=== PATIENT | female | born 1990 | race Caucasian/White ===

== ENCOUNTER 2016-04-03 19:24 | Inpatient (IN) | payer OTHER ==
[2016-04-03] VITALS (18 sets, daily range): BP systolic 102–164; BP diastolic 54–81
[~2016-04-03] VITALS: Ht 152.4 cm; Wt 61.0 kg
[~2016-04-03 19:24] MED LIST: ACET50TA PO; IBUP80TA PO; PRE-TAB3 PO
[2016-04-03] MEDS ORDERED: LACTATED RINGER'S 1000 ML IV STA (20:54)
[2016-04-03] MEDS ORDERED: LR 1,000 ML IV SCH (20:54)
[2016-04-03 21:12] LABS: MEAN CORPUSCULAR HEMOGLOBIN 32.4 pg (27.0-33.0); MEAN CORPUSCULAR HGB CONC 36.3 g/dl (32.0-36.5); MEAN CORPUSCULAR VOLUME 89.3 fl (80.0-96.0); RED CELL DISTRIBUTION WIDTH 12.3 % (11.5-14.5); WHITE BLOOD COUNT 15.4 K/mm3 (4.0-10.0)
[2016-04-03] MEDS ORDERED: FENTANYL 2MCG/ML ROPIVACAINE 0.2% NACL 250 ML CADD As Ordered ONE (21:27)
--- NOTE | 2016-04-03 21:33 | HPE ---
DATE OF ADMISSION: 04/03/2016 25-year-old 2, para 1-0-0-1, estimated date of delivery 04/09/2016 here at 39 weeks with reports of uterine contractions through the day with spontaneous rupture of membranes, clear fluid 2024. Denies bleeding. Fetus is active. Last normal menstrual period 07/04/2015 for JAYSON 04/09/2016, sonogram at 10 weeks confirmed date of 04/11/2016. Anatomy scan within normal limits. OBSTETRICAL HISTORY: 2015: Normal spontaneous vaginal , viable male, 5 pounds 15 ounces. No known drug allergies. MEDICAL-SURGICAL HISTORY: [place] teeth, colposcopy. FAMILY HISTORY: Diabetes, hypertension and bipolar. SOCIAL HISTORY: Single. Father of baby present and supportive. Denies tobacco, alcohol or drugs. OBJECTIVE: Prepregnancy weight 108, total weight gain 32 pounds. A+, antibody negative, rubella immune, VDRL, hepatitis B, hepatitis C, HIV, gonorrhea, Chlamydia all negative. 1-hour glucose 142. 3-hour within normal limits, 85, 133, 125 and 106. Group B strep is negative. Vital signs are stable. Breathing with contractions. Heart rate is regular. Abdomen is soft, gravid, longitudinal lie. Contractions 3-4 minutes apart times 60 seconds and moderate. heart 135, moderate variability and accelerations. Cervix 3-4 cm, 90%, -1, clear fluid per vagina. ASSESSMENT: Multipara at term, spontaneous rupture of membranes, early labor, category one tracing. PLAN: Admit. The patient plans epidural. Consider Pitocin augmentation. Anticipate normal spontaneous vaginal .
[2016-04-03] MEDS ORDERED: ePHEDrine SULFATE 25 MG/5 ML(5MG/ML) SYRINGE IV PRN (23:00)
[2016-04-03] MEDS ORDERED: LACTATED RINGER'S 1000 ML IV PRN (23:00)
[2016-04-03] MEDS ORDERED: diphenhydrAMINE INJ 50MG/ML VIAL (J1200) IV PRN (23:00)
[2016-04-03] MEDS ORDERED: ONDANSETRON 4MG/2ML VIAL (J2405) IV PRN (23:00)
[2016-04-03] MEDS ORDERED: NALOXONE INJ 0.4 MG/1 ML VIAL (J2310) IV PRN (23:00)
[2016-04-03] MEDS ORDERED: EPIDURAL/PCA KEYS XX PRN (23:00)
[2016-04-03] MEDS ORDERED: EPIDURAL COMMENT XX SCH (23:00)
[2016-04-03] MEDS ORDERED: FENTANYL/ROPIVACAINE/NACL CADD 250 ML EPIDURAL SCH (23:00)
[2016-04-03] MEDS ORDERED: REFRIGERATOR IV KEYS XX PRN (23:00)
[2016-04-03] MEDS ORDERED: OXYTOCIN DRIP 30 UNITS in APPROPRIATE DILUENT 1 EA IV SCH (23:30)
[2016-04-04] VITALS (9 sets, daily range): BP systolic 128–149; BP diastolic 65–85
[2016-04-04] MEDS ORDERED: METHYLERGONOVINE MALEATE 0.2 MG/ML VIAL (J2210) IM ONE (02:15)
[2016-04-04] MEDS ORDERED: METHYLERGONOVINE MALEATE 0.2 MG TAB PO SCH (02:15)
[2016-04-04] MEDS ORDERED: MOM 30ML SUSPENSION UDC PO PRN (02:15)
[2016-04-04] MEDS ORDERED: ACETAMINOPHEN 500 MG TAB PO PRN (02:15)
[2016-04-04] MEDS ORDERED: MEASLES,MUMPS,RUBELLA VACCINE INJ (MMR-II) (90707) SC SCH (02:15)
[2016-04-04] MEDS ORDERED: ANUSOL HC CREAM 30GM TOP PRN (02:15)
[2016-04-04] MEDS ORDERED: DOCUSATE SODIUM 100 MG CAP PO PRN (02:15)
[2016-04-04] MEDS ORDERED: RHOGAM 300 MCG (1500 IU) INJ (J2790) IM SCH (02:15)
[2016-04-04] MEDS ORDERED: DIBUCAINE 1% OINTMENT 30GM TOP PRN (02:15)
[2016-04-04] MEDS ORDERED: PRENTAB9 PO (02:39)
--- NOTE | 2016-04-04 02:41 | DN ---
DATE: 04/04/2016 Utilized epidural for coping. Fully dilated 00:15, labored down, viable female delivered LOT, compound with left arm at 01:36. Spontaneous respirations. Transitioned on maternal abdomen. Cord doubly clamped and cut once pulsations ceased. Apgars 9 and 9. Placenta Melendez intact with long, trailing, adherent membranes at 01:49. Fundus firmed with massage and IV Pitocin bolus. Estimated blood loss 300 mL. Methergine 0.2 mg IM given. Sponge, sharp and instrument count correct. weight 2870 grams, 6 pounds 5 ounces. Mother and baby doing well.
[2016-04-04] MEDS: IBUPROFEN 800 MG TAB PO PRN ×2 (03:05→21:53)
[2016-04-04] MEDS: METHYLERGONOVINE MALEATE 0.2 MG TAB PO SCH ×3 (08:36→20:55)
[2016-04-04] MEDS: PRENATAL VITAMIN TAB PO SCH (08:37)
[2016-04-04] MEDS ORDERED: ADACEL/BOOSTRIX VACCINE (DIPHTH/PERTUSS/ACELL/TETANUS)0.5ML SYR (90715) IM ONE (12:00)
[2016-04-05] MEDS ORDERED: METHYLERGONOVINE MALEATE 0.2 MG TAB PO PRN (02:31)
[2016-04-05] MEDS: METHYLERGONOVINE MALEATE 0.2 MG TAB PO SCH (03:02)
[2016-04-05 05:43] VITALS: BP 140/62
[2016-04-05] MEDS: PRENATAL VITAMIN TAB PO SCH (08:16)
[2016-04-05] MEDS ORDERED: ADACEL/BOOSTRIX VACCINE (DIPHTH/PERTUSS/ACELL/TETANUS)0.5ML SYR (90715) IM SCH (09:00)
== END 2016-04-05 10:50 | disposition home or self-care (01) | DRG 540 ==
LOC: M LDO 19:24 → M LDI 20:33 → M OBS 04-04 05:15
PROVIDERS: ADMIT Advanced Practice Midwife; ATTEND Advanced Practice Midwife
PROC: 10D00Z1 Extraction of Products of Conception, Low, Open Approach (ICD-10-PCS; principal; 2016-04-04)
DX: O32.6XX0 Maternal care for compound presentation, not applicable or unspecified (principal); Z37.0 Single live birth; Z3A.39 39 weeks gestation of pregnancy

== ENCOUNTER → 2017-11-04 | Outpatient (REF) | payer OTHER | LOC: M LAB REF 17:17 | DX: H60.392 Other infective otitis externa, left ear (principal) ==

== ENCOUNTER → 2018-06-18 | Outpatient (CLI) | payer OTHER ==
[~2018-06-18] MED LIST changes: -ACET50TA PO; +MAPA500T2 PO; +PRENTAB9 PO
[2018-06-18 17:40] LABS: BASO % 0.3 % (0.0-1.0); EOS # 0.2 10^3/uL (0.0-0.50); EOS % 2.2 % (0.0-3.0); HEMATOCRIT 36.6 % (36.0-47.0); HEMOGLOBIN 12.9 g/dl (12.0-15.5); LYMPH # 1.7 10^3/uL (1.5-6.5); LYMPH % 23.4 % (24.0-44.0); MEAN CORPUSCULAR HEMOGLOBIN 30.9 pg (27.0-33.0); MEAN CORPUSCULAR HGB CONC 35.2 g/dl (32.0-36.5); MEAN CORPUSCULAR VOLUME 87.6 fl (80.0-96.0); MONO # 0.6 10^3/uL (0.0-0.8); NEUTROPHILS # 4.8 10^3/uL (1.8-7.7); NEUTROPHILS % 65.8 % (36.0-66.0); PLATELET COUNT, AUTOMATED 334 10^3/uL (150-450); RED BLOOD COUNT 4.18 10^6/uL (4.00-5.40); WHITE BLOOD COUNT 7.3 10^3/uL (4.0-10.0)
[2018-06-18 19:03] LABS: CHLAMYDIA DNA AMPLIFICATION NEGATIVE (NEGATIVE); GC DNA AMPLIFICATION NEGATIVE (NEGATIVE)
[2018-06-21 09:54] LABS: HEPATITIS C VIRUS ABY INDEX 0.1 INDEX (<0.8); HIV 1&2 SCREEN CENTAUR NEGATIVE (NEGATIVE); RUBELLA IgG QUALITATIVE IMMUNE (IMMUNE)
== END ==
LOC: M SMT 13:53
PROVIDERS: ATTEND Advanced Practice Midwife
DX: Z34.81 Encounter for supervision of other normal pregnancy, first trimester (principal)

== ENCOUNTER → 2018-06-25 | Outpatient (CLI) | payer BC, OTHER | LOC: M SMT 09:36 | PROVIDERS: ATTEND Advanced Practice Midwife | DX: Z34.81 Encounter for supervision of other normal pregnancy, first trimester (principal); Z3A.00 Weeks of gestation of pregnancy not specified ==

== ENCOUNTER → 2018-10-22 | Outpatient (CLI) | payer OTHER, BC ==
[2018-10-22 13:23] LABS: HEMATOCRIT 34.9 % (36.0-47.0); MEAN CORPUSCULAR HGB CONC 34.4 g/dl (32.0-36.5); MEAN CORPUSCULAR VOLUME 93.1 fl (80.0-96.0); PLATELET COUNT, AUTOMATED 252 10^3/uL (150-450); RED BLOOD COUNT 3.75 10^6/uL (4.00-5.40)
== END ==
LOC: M WUC 09:27
PROVIDERS: ATTEND Advanced Practice Midwife
DX: Z34.82 Encounter for supervision of other normal pregnancy, second trimester (principal); Z36.89 Encounter for other specified antenatal screening

== ENCOUNTER → 2018-12-15 | Outpatient (CLI) | payer BC, OTHER | LOC: M SMT 10:44 | PROVIDERS: ATTEND Advanced Practice Midwife | DX: Z34.83 Encounter for supervision of other normal pregnancy, third trimester (principal); Z36.85 Encounter for antenatal screening for Streptococcus B ==

== ENCOUNTER 2019-01-09 21:15 | Inpatient (IN) | payer BC, OTHER ==
[~2019-01-09] VITALS: Ht 152.4 cm; Wt 58.8 kg
[2019-01-09] VITALS (12 sets, daily range): BP systolic 105–139; BP diastolic 56–76
[2019-01-09] MEDS ORDERED: LACTATED RINGER'S 1000 ML IV STA (21:30)
[2019-01-09] MEDS ORDERED: LR 1,000 ML IV SCH (21:30)
[2019-01-09 21:54] LABS: HEMATOCRIT 35.9 % (36.0-47.0); HEMOGLOBIN 12.7 g/dl (12.0-15.5); MEAN CORPUSCULAR HGB CONC 35.4 g/dl (32.0-36.5); MEAN CORPUSCULAR VOLUME 90.4 fl (80.0-96.0); PLATELET COUNT, AUTOMATED 272 10^3/uL (150-450); RED BLOOD COUNT 3.97 10^6/uL (4.00-5.40); WHITE BLOOD COUNT 16.2 10^3/uL (4.0-10.0)
--- NOTE | 2019-01-09 21:55 | HPEPDOC ---
Obstetrical History & Physical General Date of Admission Jan 09, 2019 at 21:32 Primary Care Physician: RITESH SONG CNM History of Present Illness Patient is a 28-year-old female who is a at 40.2 weeks gestation with an JAYSON of 01/07/19 based off of her first trimester ultrasound. She initiated care in her first trimester with [facility]. Her has been uncomplicated. She present with complaints of contractions that are every 4 minutes. She reports painful contractions started at 1600. She reports scant bloody show and reports active movement. She denies leaking of fluid. Chief Complaint: Active Labor Information Provided By: Patient Age: 28 : 3 Term: 2 Pre-term: 0 Abortions: 0 Livin Care Care: Good Care Dating Final EDC: Jan 07, 2019 Final EDC by: 1st trimester (US) LMP: Apr 09, 2018 EGA at Admission: 40.2 Antepartum Course Height (inches): 60 Pre- weight (lbs.): 107 Admission Weight (lbs.): 132 Change in Weight (lbs.): 25 Physical Examination Physical Examination GENERAL: Alert and oriented times three. BREAST: . ABDOMEN: Gravid and non-tender to touch. FETUS: Is vertex (VTX) by sterile vaginal examination (SVE), fetus is vertex (VTX) by Ezio. EFW is 3400 grams. HEART RATE: Regular rate and rhythm. LUNGS: Clear to auscultation (CTA). EXTREMITIES: No edema. No clonus. Deep tendon reflexes (DTRs) + 2. Other physical findings Past pregnancies: 1. May 2014: at 37 weeks gestation of living male weighting 5 lbs 15 oz with no complications. 2. March 2016: at 39 weeks of living female weighting 6 lbs 3 oz with no complications. Laboratory Data Urine Culture: No Growth Pertinent Laboratoy Data Blood Type: A+ RBC Antibody Screen: Negative HIV: Negative Hepatitis B: Negative Hepatitis C: Negative Rapid Plasma Reagin: Nonreactive Rubella: Immune Chlamydia/Gonorrhea: Negative Group B Streptococcus: Negative Glucose Tolerance Test: 116 Diag/Inter Therapy NIPT testing is low risk with normal male. Vaginal Examination Dilation: 4 cm Effacement: 100% Station: -1 Presentation: Cephalic presentation Position: Vertex (occiput) Assessment Heart Rate (FHR): 150 Variability: Moderate Accelerations: Positive Decelerations: None Tocometer Contractions: Yes Frequency: regular, other (3-4 minutes) Multi-drug resistant Organism: No history of MDRO Assessment/Plan Assessment IUP at 40.2 weeks gestation active labor GBS negative Plan Admit to L&D. OOB ad isidoro until epidural. Diet: clears. Group B Streptococcus (GBS) negative. Labs and intravenous (IV) per unit protocol. Anesthesia consult per patient's request. Lactated Ringers (LR): Bolus 800 mL, then at 125 mL/hr. Anticipate cervical change and . RITESH SONG CNM Jan 09, 2019 21:55
[2019-01-09] MEDS ORDERED: FENTANYL 2MCG/ML ROPIVACAINE 0.2% IN 0.9% NACL 100ML IVBAG As Ordered ONE (22:13)
[2019-01-09] MEDS ORDERED: ONDANSETRON 4MG/2ML VIAL (J2405) IV PRN (23:00)
[2019-01-09] MEDS ORDERED: FENTANYL/ROPIVACAINE/NACL BAG 100 ML EPIDURAL SCH (23:00)
[2019-01-09] MEDS ORDERED: EPIDURAL/PCA KEYS XX PRN (23:00)
[2019-01-09] MEDS ORDERED: EPIDURAL COMMENT XX SCH (23:00)
[2019-01-09] MEDS ORDERED: NALOXONE INJ 0.4 MG/1 ML VIAL (J2310) IV PRN (23:00)
[2019-01-09] MEDS ORDERED: LACTATED RINGER'S 1000 ML IV PRN (23:00)
[2019-01-09] MEDS ORDERED: REFRIGERATOR IV KEYS XX PRN (23:00)
[2019-01-09] MEDS ORDERED: diphenhydrAMINE INJ 50MG/ML VIAL (J1200) IV PRN (23:00)
[2019-01-09] MEDS ORDERED: ePHEDrine SULFATE 25 MG/5 ML(5MG/ML) SYRINGE IV PRN (23:00)
[2019-01-09] MEDS ORDERED: OXYTOCIN 30 UNITS IN 0.9% NaCl 500ML IV BAG (J2590) As Ordered ONE (23:39)
[2019-01-09] MEDS ORDERED: OXYTOCIN DRIP 30 UNITS in IV 1 EA IV SCH (23:45)
--- NOTE | 2019-01-09 23:50 | IPNPDOC ---
Obstetrical Progress Note Date of Service Jan 09, 2019 Subjective Patient reports she is comfortable with her epidural. Objective Vital Signs Date Time Temp Pulse Resp B/P (MAP) Pulse Ox O2 Delivery O2 Flow Rate FiO2 01/09/19 22:30 84 124/75 (91) 01/09/19 21:48 99.3 20 Assessment Heart Rate (FHR): 120 Variability: Moderate Accelerations: Positive Decelerations: None Heart Rate Tracing: Category I Tocometer Contractions: Yes Frequency: regular Sterile Vaginal Examination Dilation: 5 cm Effacement (%): 100% Station: -1 Postion/Presentation: Cephalic presentation Assessment and Plan Age: 28 : 3 Term: 2 Pre-term: 0 Abortions: 0 Livin EGA at Admission: 40.2 Status: Reassuring Group B Streptococcus: Negative Anticipate: Vaginal Delivery Additional Comments AROM to a moderate amount of clear fluid. IV Pitocin to be started per order after discussing with patient. RITESH SONG CNM Jan 09, 2019 23:50
[2019-01-10] VITALS (10 sets, daily range): BP systolic 102–142; BP diastolic 53–74
--- NOTE | 2019-01-10 02:01 | IPNPDOC ---
Obstetrical Progress Note Date of Service Jan 10, 2019 Subjective Patient feeling some pressure when she has a contraction. Objective Vital Signs Date Time Temp Pulse Resp B/P (MAP) Pulse Ox O2 Delivery O2 Flow Rate FiO2 01/09/19 23:24 77 105/58 (74) 01/09/19 21:48 99.3 20 Assessment Heart Rate (FHR): 110 Variability: Moderate Accelerations: Positive Decelerations: None Heart Rate Tracing: Category I Tocometer Contractions: Yes Frequency: other (2 to 4 minutes) Sterile Vaginal Examination Dilation: 8 cm Effacement (%): 100% Station: 0 Postion/Presentation: Cephalic presentation Assessment and Plan EGA at Admission: 40.3 Status: Reassuring Group B Streptococcus: Negative Anticipate: Vaginal Delivery Additional Comments IV Pitocin is at 2 mu/min RITESH SONG CNM Jan 10, 2019 02:01
[2019-01-10] MEDS ORDERED: OXYTOCIN DRIP 30 UNITS in IV 1 EA IV SCH (03:58)
[2019-01-10] MEDS ORDERED: MEASLES,MUMPS,RUBELLA VACCINE INJ (MMR-II) (90707) SC SCH (04:00)
[2019-01-10] MEDS ORDERED: ANUSOL HC CREAM 30GM TOP PRN (04:00)
[2019-01-10] MEDS ORDERED: IBUPROFEN 600 MG TAB PO PRN (04:00)
[2019-01-10] MEDS ORDERED: METHYLERGONOVINE MALEATE 0.2 MG TAB PO PRN (04:00)
[2019-01-10] MEDS ORDERED: RHOGAM 300 MCG (1500 IU) INJ (J2790) IM SCH (04:00)
[2019-01-10] MEDS ORDERED: ACETAMINOPHEN TAB 650MG DOSE (2X325MG) PO PRN (04:00)
[2019-01-10] MEDS ORDERED: DIBUCAINE 1% OINTMENT 30GM TOP PRN (04:00)
[2019-01-10] MEDS ORDERED: ACETAMINOPHEN 500 MG TAB PO PRN (04:00)
[2019-01-10] MEDS ORDERED: DOCUSATE SODIUM 100 MG CAP PO PRN (04:00)
[2019-01-10] MEDS ORDERED: IBUPROFEN 800 MG TAB As Ordered ONE (04:05)
--- NOTE | 2019-01-10 04:06 | DNPDOC ---
[facility] Delivery Note Delivery Note DATE OF DELIVERY: 01/10/19 at 0340 PREDELIVERY DIAGNOSIS: 40-2/7 weeks' gestation and labor. POST DELIVERY DIAGNOSIS: Delivered. PROCEDURE: Spontaneous vaginal delivery. ACQUISITION ADVISOR: Ritesh Gardiner CNM, MIKE ANESTHESIA: epidural. ESTIMATED BLOOD LOSS: 300 mL. FINDINGS: 7 pounds 6 ounces; 3340 grams, male , Score 9/9. DELIVERY SUMMARY: Patient is a 28-year-old female who presents to L&D in active labor. She received an epidural for pain management. The patient progressed to fully dilated at 0235 and pushed to a living male in the [place] position with restitution to ROT at 0340. The shoulders delivered with ease and the corpus immediately followed. The baby was placed on the maternal abdomen active and crying. The cord was clamped after 1 minute and cut by the FOB. A 3 vessel cord was noted. The placenta delivered spontaneously and intact at 0345. Uterine hemostasis was achieved via rapid infusion of IV Pitocin and fundal massage. The vagina, perineum, and cervix was inspected and found to be intact. Mom plans to breast feed her . Both mom and baby are in stable condition. All counts of instruments and sponges are correct. RITESH GARDINER CNM Jan 10, 2019 04:06
[2019-01-10] MEDS: IBUPROFEN 800 MG TAB PO PRN ×2 (04:30→17:21)
[2019-01-10] MEDS: PRENATAL VITAMINS CHEWABLE TABLET PO SCH (08:03)
[2019-01-11 06:00] VITALS: BP 112/57
[2019-01-11] MEDS: PRENATAL VITAMINS CHEWABLE TABLET PO SCH (08:48)
== END 2019-01-11 15:30 | disposition home or self-care (01) | DRG 560 ==
LOC: M LDO 21:15 → M LDI 21:32 → M OBS 01-10 05:47
PROVIDERS: ADMIT Advanced Practice Midwife; ATTEND Advanced Practice Midwife
PROC: 10907ZC Drainage of Amniotic Fluid, Therapeutic from Products of Conception, Via Natural or Artificial Opening (ICD-10-PCS; 2019-01-09)
PROC: 10E0XZZ Delivery of Products of Conception, External Approach (ICD-10-PCS; principal; 2019-01-10)
DX: O48.0 Post-term pregnancy (principal); Z3A.40 40 weeks gestation of pregnancy; Z37.0 Single live birth